=== PATIENT | male | born 1985 | race Caucasian/White ===

== ENCOUNTER 2017-10-17 10:53 | Emergency (ER) | payer SELFPAY ==
[2017-10-17 10:55] VITALS: BP 138/93; PULSE 117; RESP 14; TEMP 36.7; O2SAT 97; BMI 20.7
--- NOTE | 2017-10-17 11:05 | ED.VISSUMM ---
- ER Visit Summary Date of Service: 10/17/17 Chief Complaint: [Dental pain] History of Present Illness: The patient is a 32 M [presents to the emergency department with dental pain since yesterday. Patient states that he was eating one part of his left upper tooth broke off. Patient has an appointment to see a dentist in 4 days. Patient woke up this morning and noticed swelling to the left upper face. Patient denies fevers. Patient states that he has poor dentition to begin with. He is on see a dentist in [place] but does not remember the dentist's name.] Physical Examination: [HEENT-PERRLA, EOMI. Cranial nerves II through XII grossly intact. TMs clear. Mucous membranes moist. No adenopathy. Left upper facial swelling noted. No facial cellulitis. Dentition-patient has multiple broken and carried teeth noted but does have tenderness left upper premolars. There is gingival edema without any fluctuance left upper. No cervical adenopathy. Cardiovascular-regular rate and rhythm without murmur or ectopy Lungs-clear to auscultation, chest wall stable without crepitus or subcu emphysema Abdomen-normoactive bowel sounds, soft, nontender, no rebound or rigidity, no peritoneal signs. Extremities-intact ?4, normal range of motion, normal pulses, atraumatic] Test Results: [None indicated] Emergency Department Course and Treatment: [Patient was started on clindamycin]. At this point I believe patient has an early dental abscess however I do not feel it is amenable to I&D at this time. Treatment Plan: [Patient to keep appointment with dentist. Patient will be started on clindamycin and [place] for pain.] Disposition: [Discharged home in stable condition. Patient to return if worsening pain, fever, facial redness, or condition should worsen in any way.] Impression: [Dental pain Dental abscess-early] This note was generated with [employer] dictation software. It may contain incorrect words, spelling, and punctuation that were not noted in review of the chart prior to signing ED Disposition - Plan for ED Patient: Chief Complaint: Dental Referrals: Care Physician,No Primary [Primary Care Provider] -
--- NOTE | 2017-10-17 11:07 | ED.DEP ---
ED Disposition - Plan for ED Patient: Chief Complaint: Dental Instructions: ED Abscess Dental, ED Tooth Pain Prescriptions: Hydrocodone/Acetaminophen [[place] 5-325 Tablet] 1 - 2 ea PO 4X/DAY PRN PRN 5 Days #20 tab PRN Reason: Pain Clindamycin HCl [Cleocin] 300 mg PO Q6H #40 cap Referrals: Care Physician,No Primary [Primary Care Provider] - Additional Instructions: see your dentist as per your appointment.
[2017-10-17] MEDS: Clindamycin HCl 150 MG Capsule 300 MG PO (11:14)
== END 2017-10-17 11:24 | disposition home or self-care (01) ==
PROVIDERS: Emergency Provider Emergency Medicine
DX: K04.7 Periapical abscess without sinus (principal); Z72.0 Tobacco use
CPT/HCPCS: 99283

== ENCOUNTER 2018-12-09 09:13 | Emergency (ER) | payer OTHER, SELFPAY ==
[2018-12-09 09:14] VITALS: BP 131/95; PULSE 98; RESP 17; TEMP 36.7; O2SAT 95; BMI 22.8
--- NOTE | 2018-12-09 09:27 | ED.VISSUMM ---
- ER Visit Summary Date of Service: 12/09/18 Chief Complaint: Right hand swelling History of Present Illness: The patient is a 33 M who states that yesterday he went to take the gas cap off of his vehicle and there was a nest of an unknown insect in there and stung him multiple times in the right hand. He states that the hand continues to be swollen. He is used Benadryl twice a day. No respiratory or oropharyngeal symptoms. No urticaria. No fevers Physical Examination: Afebrile vital signs stable Lung sounds are clear. Oropharyngeal exam is normal. Dorsum of the right hand is swollen. There is no increased warmth or erythema. No lymphangitic streaking. I do not see any obvious stingers that were left in the wound. No evidence of tenosynovitis. Emergency Department Course and Treatment: Patient was given a shot of Kenalog. He was encouraged to continue using Benadryl as well as topical Benadryl and also add in Pepcid. Return if worsening or concerns Impression: 1. Local reaction to insect sting This note was generated with [employer] dictation software. It may contain incorrect words, spelling, and punctuation that were not noted in review of the chart prior to signing ED Disposition - Plan for ED Patient: Disposition: Home or Assisted Living Instructions: ALLERGIC REACTION, Insect (Local) Additional Instructions: Benadryl 25 mg every 6 hours as needed for swelling and itching. Discontinue if making you somnolent Pepcid 20 mg twice a day as needed for swelling and itching You may continue the topical Benadryl as needed.
[2018-12-09] MEDS: Triamcinolone Acetonide 40 MG/ML Vial IM (09:35)
[2018-12-09 09:42] VITALS: BP 138/77; PULSE 62; RESP 15; O2SAT 98
== END 2018-12-09 09:45 | disposition home or self-care (01) ==
LOC: ED 09:33
PROVIDERS: Emergency Provider Emergency Medicine
DX: T63.481A Toxic effect of venom of other arthropod, accidental (unintentional), initial encounter (principal); M79.89 Other specified soft tissue disorders; Y92.9 Unspecified place or not applicable
CPT/HCPCS: 96372; 99282

== ENCOUNTER 2021-04-23 09:32 | Emergency (ER) | payer SELFPAY ==
[2021-04-23 09:34] VITALS: BP 150/114; PULSE 106; RESP 16; TEMP 36.5; O2SAT 98; BMI 20.5
--- NOTE | 2021-04-23 09:52 | CT_ITS ---
STUDY: CT ABDOMEN AND PELVIS WITH CONTRAST REASON FOR EXAM: Male, 35 years old. Abdominal pain -- IV PO Contrast RADIATION DOSAGE (If Supplied By Facility): CTDIvol = ( 11.67 ) mGy, DLP = ( 680.14 ) mGycm TECHNIQUE: Transaxial images were obtained from the dome of the diaphragm to the symphysis pubis with oral contrast. Oral and amp; IV Gastrografin and amp; 100mL Isovue-300 was administered. Sagittal and coronal images were reconstructed. Individualized dose optimization techniques were used for this CT. COMPARISON: Comparison is made with prior study dated 12/13/2012. FINDINGS: The visualized lung bases are unremarkable. The visualized portions of the heart are within normal limits. Normal liver. The patient is status post cholecystectomy. Normal spleen. Normal pancreas. There is a small, circumscribed, smooth, low attenuation left adrenal mass, consistent with an adrenal adenoma. This measures 1.1 cm. Normal right adrenal gland. Normal right kidney. Stable 1 cm cyst in the upper pole of the right kidney. Normal visualized stomach. Normal small intestine. There is diverticulosis, with thickening of the colon wall, and pericolonic inflammation changes consistent with a mild noncomplicated acute diverticulitis. The patient is status post right hemicolectomy. There is scattered atherosclerotic calcification of the abdominal aorta, without a demonstrated aneurysm. Normal inferior vena cava. There is borderline retroperitoneal lymphadenopathy with enlarged nodes no greater than 10mm in the short axis diameter. There is a mild degree of diffuse bladder wall thickening. Normal abdominal wall. Normal osseous structures. CT/Abdomen/Pelvis WITH Contrast IMPRESSION: Findings in keeping with a mild degree of noncomplicated sigmoid diverticulitis. Bladder wall thickening. 1.1 cm left adrenal adenoma. Electronically Signed: Ruben Hunter MD at 12:40 EST , Service support ,
--- NOTE | 2021-04-23 09:53 | ED.VIS.GI ---
HPI HPI - GI History of Present Illness Chief Complaint: Abd Pain Informant: patient Abdominal Pain/Flank Pain Onset: Days (5) Context: Gradual Onset Timing: Continuous Quality: Sharp (At times) and - (Pressure) Location: RLQ Worsened by: Movement Relieved by: Nothing Nausea/Vomiting/Emesis GI Symptom: Positive for Nausea; Negative for Vomiting Diarrhea/Melena/Hematochezia GI Symptom: Negative for Diarrhea, Melena and Hematochezia Associated Symptoms Associated Symptoms: Negative for Dysuria, Frequency and Hematuria Narrative Narrative: Patient presents with right lower quadrant pain that has been getting worse over the past 5 days. Patient states that his pain started in the right lower quadrant. Patient started out as a dull ache but now is a constant pressure. Patient states the pain is sharp whenever he moves. Patient states nothing seems to make the pain better. Patient admits to some nausea when the pain becomes bad. Patient denies any vomiting. Patient states the skin in his right lower quadrant has some mild erythema. Patient states that there was some drainage from that area a few days ago. Patient states his pain radiates into his right groin. Patient admits to decreased appetite. Patient denies any dysuria or hematuria. [facility] Medical History (Updated 04/23/21 @ 13:[address] Amanuel Leiva DO) Anxiety Home Medications alprazolam 0.5 mg PO BID 10/14/13 [History Last Taken Unknown] amoxicillin-pot clavulanate 875 mg PO Q12H #20 tablet 04/23/21 [Rx Last Taken Unknown] Allergy/AdvReac Type Severity Reaction Status Date / Time No Known Allergies Allergy Verified 04/23/21 09:37 Surgical History History of bowel resection History of cholecystectomy Social History Smoking Status: Current every day smoker tobacco type: cigarettes ROS ROS ED Constitutional Constitutional ED: Denies chills or fever(s) Eyes Eyes: Denies blurry vision or change in vision ENT ENT ED: Denies rhinorrhea or sore throat Cardiovascular Cardiovascular: Denies chest pain or palpitations Respiratory/Chest Respiratory/Chest: Denies cough or dyspnea Gastrointestinal Gastrointestinal: Reports abdominal pain and nausea; Denies diarrhea, melena or vomiting Genitourinary Genitourinary ED: Denies dysuria or hematuria Musculoskeletal Musculoskeletal: Reports back pain; Denies neck pain Integumentary Denies abscess or rash Neurologic Neurologic: Reports headache(s); Denies weakness Allergic/Immunologic Allergic/Immunologic ED: Denies mouth swelling or urticaria EXAM Physical Exam Const Vital Signs: 04/23/21 09:34 Temperature 97.7 F L Temperature Source Temporal Pulse Rate 106 H Respiratory Rate 16 Blood Pressure 150/114 H Blood Pressure Mean 126 Pulse Ox 98 Oxygen Delivery Method Room Air Positive well nourished and well developed General Appearance ED: well developed HEENT Reports moist mucous membranes Neck supple and no JVD Resp normal respiratory effort and clear to auscultation bilaterally Cardio regular rate, regular rhythm and no murmurs GI normal to inspection, nondistended, normoactive bowel sounds and non-distended GI Narrative: There is tenderness in the right inguinal area and right testicle. There is no erythema or warmth. There is no hernia palpated. Palpation: soft and tender RLQ and Rovsing's sign; Negative for guarding or rebound tenderness present Extremity normal to inspection General Extremety ED: Negative for edema or tenderness General Extremity: Negative for edema Neuro oriented x3, CN's II-XII intact bilaterally and no sensory deficits noted Sensorium / Orientation: alert Motor Exam: strength 5/5 throughout Psych mental status grossly normal Skin no rashes or lesions noted MDM MDM MDM Narrative Medical decision making narrative: Patient was given IV fluids, morphine, and Zofran. CBC shows a hemoglobin of 18.5. The remainder was within normal limits. Comprehensive metabolic profile showed a slightly elevated bilirubin of 1.5. Lactate was normal at 1.0. CT scan of the abdomen pelvis was obtained. There is mild diverticulitis. There is bladder wall thickening. There is no free air or evidence of bowel obstruction. This was interpreted by the radiologist and reviewed by myself. Patient was given a dose of Augmentin here. Patient was given a prescription for Augmentin. Patient was instructed to follow-up with his primary care physician in 5 to 7 days. Patient understood and was agreeable with the plan. All questions were answered. Lab Data Attestation: I reviewed the patient's lab results. Labs: Laboratory Results - last 24 hr 04/23/21 04/23/21 04/23/21 10:58 10:58 10:58 WBC 5.7 RBC 5.24 Hgb 18.5 H* Hct 50.9 MCV 97.1 H MCH 35.3 H MCHC 36.3 H RDW Std Deviation 45.0 H RDW Coeff of Toyin 12.7 Plt Count 169 MPV 9.7 Immature Gran % (Auto) 0.200 Neut % (Auto) 71.3 H Lymph % (Auto) 17.0 L [place] % (Auto) 10.2 H Eos % (Auto) 0.9 Baso % (Auto) 0.4 Absolute Neuts (auto) 4.0 Absolute Lymphs (auto) 0.96 Nucleated RBC % 0 Differential Comment COMMENT Diff Path Review May foll Sodium 135 L Potassium 4.2 Chloride 102 Carbon Dioxide 29.0 Anion Gap 4 L BUN 6 L Creatinine 0.76 Estim Creat Clear Calc 115.26 Est GFR (MDRD) Af Amer 148 Est GFR (MDRD) Non-Af 122 BUN/Creatinine Ratio 7.9 L Glucose 90 Lactic Acid 1.0 Calcium 8.6 Total Bilirubin 1.50 H AST 29 ALT 54 Alkaline Phosphatase 115 Total Protein 7.4 Albumin 3.3 Globulin 4.1 Albumin/Globulin Ratio 0.8 L Urine Color Urine Clarity Urine pH Ur Specific [place] Urine Protein Urine Glucose (UA) Urine Ketones Urine Occult Blood Urine Nitrite Urine Bilirubin Urine Urobilinogen Ur Leukocyte Esterase Urine RBC Urine WBC Ur Squamous Epith Cells Urine Bacteria Urine Mucus 04/23/21 11:20 WBC RBC Hgb Hct MCV MCH MCHC RDW Std Deviation RDW Coeff of [place] Plt Count MPV Immature Gran % (Auto) Neut % (Auto) Lymph % (Auto) [place] % (Auto) Eos % (Auto) Baso % (Auto) Absolute Neuts (auto) Absolute Lymphs (auto) Nucleated RBC % Differential Comment Diff Path Review Sodium Potassium Chloride Carbon Dioxide Anion Gap BUN Creatinine Estim Creat Clear Calc Est GFR (MDRD) Af Amer Est GFR (MDRD) Non-Af BUN/Creatinine Ratio Glucose Lactic Acid Calcium Total Bilirubin AST ALT Alkaline Phosphatase Total Protein Albumin Globulin Albumin/Globulin Ratio Urine Color Yellow Urine Clarity Clear Urine pH 6.5 Ur Specific [place] 1.005 Urine Protein Negative Urine Glucose (UA) Normal Urine Ketones Negative Urine Occult Blood Negative Urine Nitrite Negative Urine Bilirubin Negative Urine Urobilinogen Normal Ur Leukocyte Esterase Negative Urine RBC 0 SEEN Urine WBC 0 SEEN Ur Squamous Epith Cells 0 SEEN Urine Bacteria 0 SEEN Urine Mucus 0 SEEN Radiography Diagnostic Testing: Clinical Impression(s) from Imaging Studies Abdomen/Pelvis CT 04/23/21 09:52 IMPRESSION: Findings in keeping with a mild degree of noncomplicated sigmoid diverticulitis. Bladder wall thickening. 1.1 cm left adrenal adenoma. Electronically Signed: Ruben Hunter MD at 12:40 EST , Service support , Discharge Plan Triage Chief Complaint: Abd Pain ED Provider: Amanuel Leiva Dx/Rx/DC Orders Clinical Impression: Diverticulitis, Cellulitis of right abdominal wall Instructions: ED Diverticulitis Prescriptions: New amoxicillin-pot clavulanate [amoxicillin-pot clavulanate] 875 MG tablet 875 mg PO Q12H Qty: 20 RF: 0 No Action alprazolam 0.5 MG tablet 0.5 mg PO BID RF: 0 Primary Care Provider: Care Physician,No Primary Referrals: Nida Madrigal DO [STAFF PHYSICIAN] - 3-5 Days Care Physician,No Primary [Primary Care Provider] - Disposition Disposition: Home, Self Care
[2021-04-23] MEDS: Morphine 4 MG/ML Syringe IV (10:54)
[2021-04-23] MEDS: Ondansetron 4 MG/2 ML Vial IV (10:54)
[2021-04-23] MEDS: 0.9% Normal Saline 1,000 ML 1000 ML IV (10:54)
[2021-04-23 11:32] LABS: ALB/GLOB Ratio 0.8 RATIO (0.9-2.4); AST(SGOT) 29 U/L (15-37); Alanine Aminotransfer ALT/SGPT 54 U/L (16-61); Albumin, Serum 3.3 g/dL (3.2-5.0); Alkaline Phosphatase 115 U/L (45-117); Anion Gap 4 (5-15); BUN 6 mg/dL (7-18); BUN/Creat Ratio 7.9 RATIO (10-20); Calcium,Total 8.6 mg/dL (8.5-10.1); Chloride 102 mmol/L (98-107); Creatinine, Serum 0.76 mg/dL (0.70-1.30); EST Glomerular Filtration Rate 122 mL/min (>60); Est Glom Filt Rate - Afr Amer 148 mL/min (>60); Estimated Creatinine Clearance 115.26 ml/min; Globulin 4.1 g/dL (2.2-4.2); Glucose 90 mg/dL (74-106); Potassium 4.2 mmol/L (3.5-5.1); Protein, Total 7.4 g/dL (6.4-8.2); Sodium Level 135 mmol/L (136-145)
[2021-04-23 11:33] LABS: Bacteria 0 SEEN /hpf (None Seen); Mucous, Urine 0 SEEN /hpf (<or=2+); Red Blood Cells-Urine 0 SEEN /hpf (0-5); Squamous Epithelial Cells - UA 0 SEEN /hpf (0-5); White Blood Cells 0 SEEN /hpf (0-5)
[2021-04-23 11:35] LABS: Color, Urine Yellow (Yellow); Glucose, Dipstick Normal (Normal); Ketone-Dipstick Negative (Negative); Leukocyte Esterase-Dipstick Negative /ul (Negative); Nitrite-Dipstick Negative (Negative); Occult Blood-Urine Negative /ul (Negative); Protein-Dipstick Negative (Negative); Specific Gravity, Urine 1.005 (1.002-1.030); Urine Bilirubin Dipstick Negative (Negative); Urine Clarity Clear (Clear); Urine Urobilinogen Normal (Normal); Urine pH 6.5 (5.0 - 8.0)
[2021-04-23 11:36] LABS: Absolute Lymphocyte Count 0.96 X10^3/uL (0.83-4.51); Basophil# 0.02 X10^3/uL; Basophil% 0.4 % (0-1); Eosinophil# 0.05 X10^3/uL; Eosinophils% 0.9 % (0-5); Hematocrit 50.9 % (40-54); Lymphocyte # 0.96 X10^3/ul (0.83-4.51); Mean Corp Hgb Conc 36.3 g/dL (32-36); Mean Corpuscular Hgb 35.3 pg (27.0-32.0); Mean Corpuscular Volume 97.1 fL (80-94); Mean Platelet Vol. 9.7 fl (6.2-12.0); Monocyte# 0.58 X10^3/uL; Monocyte% 10.2 % (0-10); NRBC Flagged by Analyzer 0 % (0-5); Neutrophil # 4.04 X10^3/uL (2.7-7.7); Neutrophil % 71.3 % (47-70); Platelet Count 169 K/mm3 (150-450); RBC Distribution Width CV 12.7 % (11.6-14.6); Red Blood Count 5.24 M/mm3 (4.6-6.2); White Blood Count 5.7 K/mm3 (4.4-11.0)
--- NOTE | 2021-04-23 11:48 | ED.RN ---
critical result of hemoglobin-18.5 md aware.
[2021-04-23 11:49] LABS: Differential Indicated SCAN CRITERIA MET; Hemoglobin 18.5 g/dL (13.0-16.5)
[2021-04-23 13:56] VITALS: BP 135/103; PULSE 86; RESP 14; O2SAT 99
[2021-04-23] MEDS: Amox/Clavulanate 875 MG Tablet PO (13:56)
[2021-04-24 13:09] LABS: Pathologist Review Reviewed
== END 2021-04-23 14:03 | disposition home or self-care (01) ==
PROVIDERS: Emergency Provider Emergency Medicine
DX: K57.32 Diverticulitis of large intestine without perforation or abscess without bleeding (principal); L03.311 Cellulitis of abdominal wall; F41.9 Anxiety disorder, unspecified; F17.210 Nicotine dependence, cigarettes, uncomplicated; Z79.899 Other long term (current) drug therapy
CPT/HCPCS: 74177; 80053; 81001; 83605; 85025; 96361; 96374; 96375; 99284; J7030; Q9967; A4216; J2405

== ENCOUNTER 2024-04-29 08:08 | Emergency (ER) | payer MEDICAID, SELFPAY ==
[2024-04-29 08:09] VITALS: BP 149/110; PULSE 100; RESP 16; TEMP 36.4; O2SAT 98; BMI 22.3
--- NOTE | 2024-04-29 08:25 | EX.ED.DYSGE1 ---
HPI History of Present Illness Chief Complaint: GI Bleed Detail of Chief Complaint: Bright red blood per rectum with bowel movement this morning Informant: patient Onset/Context/Timing Onset: Today Context: Sudden Onset Timing: Intermittent Quality: Bright red blood Location: With bowel movement Current Severity: Not applicable Maximum Severity: Moderate Worsened by: Patient is concerned this is related to his prior surgery Relieved by: Nothing Associated Symptoms Associated Symptoms: No abdominal pain. Not on anticoagulant Narrative Narrative: Patient is a 38-year-old male. He apparently had gangrene bowel which resulted in lower GI bleed. He presents because of bright red blood per rectum with bowel movement this morning. He states his stool was brown. He states there was a lot of blood. He became nervous and presented to the emergency department. He denies fever, chills night sweats. Denies nausea or vomiting. Patient states she has had chronic diarrhea since surgery. He also is status postcholecystectomy by Dr. Green in 2017 Prior similar symptoms: Yes Recent Illness/Hospitalization: No PFSH PFSH Medical History Anxiety Home Medications ?Medication ?Instructions ?Recorded ?Last Taken ?Type alprazolam 0.5 mg tablet 0.5 mg PO BID 10/14/13 Unknown History amoxicillin 875 mg-potassium 875 mg PO Q12H #20 TABLETS 04/23/21 Unknown Rx clavulanate 125 mg tablet Allergy/AdvReac Type Severity Reaction Status Date / Time No Known Allergies Allergy Verified 04/29/24 08:08 Surgical History History of cholecystectomy History of bowel resection Social History (Updated 04/29/24 @ 08:[address] Faizan Bray MD) Smoking Status: Current every day smoker tobacco type: cigarettes alcohol intake: current alcohol intake frequency: 3 or more drinks per day substance use type: does not use ROS ROS ED Constitutional Constitutional ED: Denies chills, fever(s), subjective or sweats Cardiovascular Cardiovascular: Denies chest pain or palpitations Respiratory/Chest Respiratory/Chest: Denies cough, dyspnea or dyspnea on exertion Gastrointestinal Gastrointestinal: Reports diarrhea and other Details: Hematochezia ; Denies abdominal pain, constipation, melena, nausea or vomiting Neurologic Neurologic: Denies paresthesias or weakness Hematologic/Lymphatic Hematologic/Lymphatic: Reports systems reviewed and no addt'l complaints, except as documented; Denies easy bleeding or easy bruising EXAM Physical Exam Const Vital Signs: 04/29/24 08:09 Temperature 97.6 F L Temperature Source Oral Pulse Rate 100 Respiratory Rate 16 Blood Pressure 149/110 H Blood Pressure Mean 123 Pulse Ox 98 Oxygen Delivery Method Room Air Positive well nourished, well developed and unkempt General Appearance ED: unkempt, well developed and NAD; Negative for pallor HEENT Reports moist mucous membranes HEENT Narrative: Patient has poor dentition. Otherwise HEENT exam is unremarkable. Eyes PERRL and EOMs intact bilaterally General Eye ED: Negative for pale conjunctiva or scleral icterus Chest Wall inspection of chest normal and palpation of chest normal Resp normal respiratory effort and clear to auscultation bilaterally Cardio regular rate, regular rhythm, S1 normal heart sound, S2 normal heart sound and no murmurs GI normal to inspection, nondistended, normoactive bowel sounds, non-tender, non-distended and no masses; Negative for hepatosplenomegaly GI Narrative: Patient has evidence of prior hemorrhoids i.e. sentinel tag. There is no blood noted at the anus. There is no fissures or fistulas noted. Patient had discomfort on rectal exam. Prostate slightly enlarged. Prostate is not tender. Stool is brown. There is no blood noted. Back/Spine no CVA tenderness Neuro oriented x3 and CN's II-XII intact bilaterally Sensorium / Orientation: alert Psych mental status grossly normal Appearance: unkempt Skin no rashes or lesions noted, no wounds and skin turgor normal General Skin Exam: Negative for jaundice or pallor MDM MDM MDM Narrative Medical decision making narrative: In light of patient's history report of bright red blood and no obvious abnormality to explain his bleeding anoscopy was performed. Anoscopy: Patient tolerated procedure. There is a hemorrhoid noted at 5 and 7:00 lithotomy position. Stool above the scope was noted brown. There is no blood noted above the scope. There is no active bleeding at this time. History & Record Review Additional record(s) reviewed:: Prior inpatient record and Prior outpatient record (ER visit for soft tissue infection i.e. cellulitis of the abdomen in 2020 and 2018.) Treatment and Re-Evaluation :: Patient was informed of the findings. Patient was discharged to home. Discharge Plan Triage Chief Complaint: GI Bleed ED Provider: Faizan Bray Dx/Rx/DC Orders Clinical Impression: Bleeding external hemorrhoids, Elevated blood-pressure reading without diagnosis of hypertension Prescriptions: No Action alprazolam 0.5 MG tablet 0.5 mg PO BID Patient Comments: ANXIETY amoxicillin-pot clavulanate [amoxicillin-pot clavulanate] 875 MG tablet 875 mg PO Q12H Qty: 20 0RF Primary Care Provider: Care Physician,Margaret Primary Referrals: Care Physician,No Primary [Primary Care Provider] - Activity Restrictions/Additional Instructions: 1. Since he did not have a doctor you were referred to the [facility]. Print Language: Lao Disposition Disposition: Home, Self Care
[2024-04-29 08:44] VITALS: BP 147/109; PULSE 89; RESP 16; TEMP 36.6; O2SAT 99
== END 2024-04-29 08:49 | disposition home or self-care (01) ==
LOC: ED 08:46
PROVIDERS: Emergency Provider Emergency Medicine; Visit Provider Emergency Medicine
DX: K64.9 Unspecified hemorrhoids (principal); R03.0 Elevated blood-pressure reading, without diagnosis of hypertension; F17.210 Nicotine dependence, cigarettes, uncomplicated
CPT/HCPCS: 99282

== ENCOUNTER 2024-06-11 08:20 | Emergency (ER) | payer MEDICAID, SELFPAY ==
[2024-06-11 08:20] VITALS: BP 146/109; PULSE 100; RESP 18; TEMP 36.6; O2SAT 98; BMI 23.1
--- NOTE | 2024-06-11 08:30 | RAD_ITS ---
STUDY: X-RAY - RIGHT KNEE REASON FOR EXAM: Male, 38 years old. R-knee injury TECHNIQUE: 4 view(s) of the knee. COMPARISON: None. FINDINGS: Normal visualized distal femur. Normal visualized proximal tibia and fibula. Normal proximal tibiofibular articulation. Normal medial femorotibial compartment. Normal lateral femorotibial compartment. Normal patellofemoral articulation. The soft tissue structures are unremarkable. RAD/Knee 4 or More Views IMPRESSION: Normal x-ray examination of the knee. Electronically Signed: Ruben Hunter MD at 8:49 EST ,
--- NOTE | 2024-06-11 08:31 | EDS_ITS ---
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 States that last day he was shoveling snow. Slipped on the ice felt a pop in his knee and went down. No prior knee surgery in his 20s he had a meniscal tear that did not need surgical repair and healed. Said typically does not have knee problems. Today when he goes to bear weight on his right knee he has discomfort. No swelling. No fever or redness. Prior to slipping on the ice he was not having any knee issues or pain. Chief Complaint: Lower Extremity Injury Informant: patient Occured/Mechanism Mechanism/Context: Yes injury Onset/Context/Timing Onset: Today and Yesterday Context: Sudden Onset Timing: Continuous Quality of Pain: Sharp Current Severity: Mild Maximum Severity: Mild Associated Symptoms Associated Symptoms: Negative for Parasthesia, Weakness or Loss of Funtion Narrative Narrative: 38-year-old male slipped on the ice last night heard a pop and has had pain in his right knee worse with weightbearing since then. Denies other complaints. No prior knee surgery. History of a prior meniscal tear. Prior similar symptoms: No Recent Illness/Hospitalization: No PFSH PFS Medical History Anxiety Home Medications ?Medication ?Instructions ?Recorded ?Last Taken ?Type alprazolam 0.5 mg tablet 0.5 mg PO BID 10/14/13 Unknown History amoxicillin 875 mg-potassium 875 mg PO Q12H #20 TABLETS 04/23/21 Unknown Rx clavulanate 125 mg tablet Allergy/AdvReac Type Severity Reaction Status Date / Time No Known Allergies Allergy Verified 06/11/24 08:20 Surgical History History of cholecystectomy History of bowel resection Social History Smoking Status: Current every day smoker tobacco type: cigarettes alcohol intake: current alcohol intake frequency: 3 or more drinks per day substance use type: does not use ROS ROS ED ROS Narrative Denies recent illness. Constitutional Constitutional ED: Denies chills or fever(s) Eyes Eyes: Denies blurry vision ENT ENT ED: Denies ear pain Cardiovascular Cardiovascular: Denies chest pain or palpitations Respiratory/Chest Respiratory/Chest: Denies cough or dyspnea Gastrointestinal Gastrointestinal: Denies abdominal pain Genitourinary Genitourinary ED: Denies dysuria Musculoskeletal Musculoskeletal: Denies arthralgias Integumentary Denies abscess Neurologic Neurologic: Denies headache(s) Psychiatric Psychiatric: Denies anxiety or depression Endocrine Endocrinology: Denies polydipsia or polyphagia Hematologic/Lymphatic Hematologic/Lymphatic: Denies easy bleeding or easy bruising Allergic/Immunologic Allergic/Immunologic ED: Denies mouth swelling, tongue swelling or urticaria EXAM Physical Exam Narrative Exam Narrative: 2-year-old male no acute distress. Vital signs stable afebrile. H EENT exam unremarkable. Moist weeks membranes. Neck nontender. Lungs clear. Heart reg ular rhythm no murmur. Chest wall ribs nontender. Abdomen soft nontender. Moving all 4 extremities. Neurovascularly intact. Normal range of motion. Normal strength. Specifically right hip nontender. Right knee no reproducible pain to palpation. No swelling or effusion. No discoloration. No redness or warmth. No hot joint. He has full flexion and extension of the right knee. When he completely extends 180 degrees he has mild discomfort in the popliteal fossa. He can lift his leg off the bed. The ACL and PCL ligaments are intact with good endpoints. As are the MCL and LCL ligaments. Quadriceps patella and infrapatellar tendon are intact. There is no joint effusion. Calf and lower leg are nontender. No edema or cords. Ankle is nontender. He has normal dorsi and plantarflexion of the right foot and ankle. Normal sensation. Const Vital Signs: 06/11/24 08:20 Temperature 98 F Temperature Source Temporal Pulse Rate 100 Respiratory Rate 18 Blood Pressure 146/109 H Blood Pressure Mean 121 Pulse Ox 98 Oxygen Delivery Method Room Air Positive well nourished and well developed; Negative for obese, cachectic, contractures or unkempt General Appearance ED: well developed and NAD; Negative for unkempt, cachectic or contractures Nutritional Appearance: Negative for cachectic or obese HEENT Reports moist mucous membranes normocephalic and atraumatic Eyes PERRL Neck full ROM and supple Chest Wall inspection of chest normal and palpation of chest normal Resp normal respiratory effort, no retractions and clear to auscultation bilaterally Cardio regular rate, regular rhythm, S1 normal heart sound, S2 normal heart sound and no murmurs Rate: Negative for bradycardia or tachycardic Rhythm: Negative for abnormal rhythm Bruits: Negative for other GI non-tender, non-distended and no masses Inspection: Negative for abdominal distention Auscultation: normoactive bowel sounds Palpation: soft; Negative for tender, guarding or rebound tenderness present Back/Spine no CVA tenderness General Back: Negative for CVA tenderness or swelling Cervical Spine: Negative for cervical spine tenderness Thoracic Spine / Upper Back: Negative for thoracic spinal tenderness Lumbar Spine / Lower Back: Negative for lumbar spinal tenderness, straight leg raise negative bilaterally, straight leg raise positive right or straight leg raise positive - left Extremity normal to inspection and full ROM General Extremety ED: Yes weight-bearing difficulty; Negative for cyanosis or edema General Extremity: weight-bearing difficulty; Negative for cyanosis or edema Neuro oriented x3, CN's II-XII intact bilaterally, moves all extremities and no sensory deficits noted Sensorium / Orientation: alert, oriented to person, oriented to place and oriented to time; Negative for orientation impaired, confused, lethargic or stuporous Motor Exam: strength 5/5 throughout Psych mental status grossly normal Appearance: Negative for unkempt Skin no wounds Lesions: no lesions Rashes: no rashes Trauma: Negative for abrasion MDM MDM MDM Narrative Medical decision making narrative: 38-year-old male slipped on the ice injuring his right knee. Exam benign. No swelling or effusion. Normal range of motion. X-ray being obtained. Patient understands the limitations of plain film which will not diamond picker of meniscal tear or other soft tissue injuries. Repeat exam at 9:01 AM unchanged. Patient I discussed his x-ray. Limitations of the x-ray. Treated with ice, Tylenol Motrin. If not improving follow-up with orthopedics for further evaluation and to rule out a meniscal tear. Radiography Diagnostic Testing: Clinical Impression(s) from Imaging Studies Knee X-Ray 06/11/24 08:30 IMPRESSION: Normal x-ray examination of the knee. Electronically Signed: Ruben Hunter MD at 8:49 EST , Right knee x-ray, 4 views, interpreted both by myself and the radiologist shows no acute abnormality. No fracture. No dislocation. No effusion. Discharge Plan Triage Chief Complaint: Lower Extremity Injury ED Provider: Enrique Dalton Dx/Rx/DC Orders Clinical Impression: Acute knee pain Instructions: ED Knee Sprain Prescriptions: No Action alprazolam 0.5 MG tablet 0.5 mg PO BID Patient Comments: ANXIETY amoxicillin-pot clavulanate [amoxicillin-pot clavulanate] 875 MG tablet 875 mg PO Q12H Qty: 20 0RF Primary Care Provider: Care Physician,No Primary Referrals: Leonel Curry DO [Med Staff - Active Staff] - 1 Week if not improving Care Physician,No Primary [Primary Care Provider] - Activity Restrictions/Additional Instructions: Motrin for pain and inflammation and Tylenol for pain. Ice your knee. Increase activity as tolerated. This may just be a sprain. Obviously the x-rays do not see tendons, ligaments or cartilage. My biggest concern would be potential tear of your meniscus. If not improving call and follow-up with orthopedics to have further evaluation. If the pain does not improve they and you can discuss an MRI of your knee. Print Language: Grenadian Disposition Disposition: Home, Self Care
[2024-06-11 09:10] VITALS: BP 129/73; PULSE 67; RESP 15; TEMP 36.7; O2SAT 100
== END 2024-06-11 09:11 | disposition home or self-care (01) ==
PROVIDERS: Emergency Provider Emergency Medicine; Visit Provider Emergency Medicine
DX: M25.561 Pain in right knee (principal); F17.210 Nicotine dependence, cigarettes, uncomplicated

== ENCOUNTER 2024-07-28 08:44 | Emergency (ER) | payer MEDICAID, SELFPAY ==
[2024-07-28 08:44] VITALS: BP 153/106; PULSE 100; RESP 16; TEMP 36.3; O2SAT 100; BMI 23.1
--- NOTE | 2024-07-28 08:53 | RAD_ITS ---
PROCEDURE: FINGER(S) MIN 2 VIEWS REASON FOR EXAM: Injury. TECHNIQUE: 3 view(s) of the left 3rd finger COMPARISON: None RAD/Finger(s) Min 2 Views IMPRESSION: A displaced Fracture of the distal tuft of the left 3rd finger is seen. No radiopaque foreign body is seen. No intra-articular extension is seen. Reading Location: [id number]
--- NOTE | 2024-07-28 09:17 | EDS_ITS ---
HPI History of Present Illness HPI Narrative: 39-year-old [id number] male yesterday around 4 PM and shot his left hand primarily the tip of the ring finger in his car door. Complaining of pain and swelling. Chief Complaint: Upper Extremity Injury Informant: patient Occured/Mechanism Mechanism/Context: Yes injury and Yes blunt trauma Onset/Context/Timing Onset: Yesterday and Hours Context: Sudden Onset Timing: Continuous Quality of Pain: Sharp Current Severity: Moderate Maximum Severity: Severe Associated Symptoms Associated Symptoms: Negative for Parasthesia, Weakness or Loss of Funtion Narrative Narrative: 39-year-old [id number] male showed his left long finger in his car door yesterday. Complaining of pain and swelling. Prior similar symptoms: No Recent Illness/Hospitalization: No PFSH PFSH Medical History Anxiety Home Medications ?Medication ?Instructions ?Recorded ?Last Taken ?Type alprazolam 0.5 mg tablet 0.5 mg PO BID 10/14/13 Unkno wn History amoxicillin 875 mg-potassium 875 mg (0.875 x 875-125 m g) PO 04/23/21 Unknown Rx clavulanate 125 mg tablet Q12H #20 TABLETS Allergy/AdvReac Type Severity Reaction Status Date / Time No Known Allergies Allergy Verified 07/28/24 08:46 Surgical History History of cholecystectomy History of bowel resection Social History Smoking Status: Current every day smoker tobacco type: cigarettes alcohol intake: current alcohol intake frequency: 3 or more drinks per day substance use type: does not use ROS ROS ED ROS Narrative Denies recent illness. Constitutional Constitutional ED: Denies fever(s) Eyes Eyes: Denies blurry vision ENT ENT ED: Denies ear pain Cardiovascular Cardiovascular: Denies chest pain Respiratory/Chest Respiratory/Chest: Denies cough Gastrointestinal Gastrointestinal: Denies abdominal pain Genitourinary Genitourinary ED: Denies dysuria Musculoskeletal Musculoskeletal: Denies back pain Integumentary Denies abscess Neurologic Neurologic: Denies headache(s) Endocrine Endocrinology: Denies cold intolerance Hematologic/Lymphatic Hematologic/Lymphatic: Denies easy bleeding Allergic/Immunologic Allergic/Immunologic ED: Denies mouth swelling EXAM Physical Exam Narrative Exam Narrative: Moving all 4 extremities. Left long finger has tape around the distal end. When I took the tape off the finger is swollen. Primarily at the tip. Mild bruising. About a 30% subungual hematoma. Nail is intact. Skin is intact. He is able to do flexion and extension. There is tenderness to the distal phalanx. Normal sensation. Skin intact. No infection.Well-appearing a 39-year-old male. Sitting upright in bed. Vital signs are stable afebrile. HEENT exam normal. Moist membranes. Lungs clear. Heart regular rhythm rate about 100 no murmur. Chest wall ribs nontender. Abdomen soft nontender. Neurologically is awake and alert no focal motor deficits. Const Vital Signs: 07/28/24 08:44 Temperature 97.3 F L Temperature Source Temporal Pulse Rate 100 Respiratory Rate 16 Blood Pressure 153/106 H Blood Pressure Mean 121 Pulse Ox 100 Oxygen Delivery Method Room Air Positive well nourished and well developed; Negative for obese, cachectic, contractures or unkempt General Appearance ED: well developed and NAD; Negative for unkempt, cachectic, contractures, cyanotic or diaphoretic Nutritional Appearance: Negative for cachectic or obese HEENT Reports moist mucous membranes normocephalic and atraumatic Eyes PERRL and EOMs intact bilaterally Neck full ROM and supple General: Negative for tenderness Lymph Lymphatic: Negative for other Chest Wall inspection of chest normal and palpation of chest normal Resp normal respiratory effort and clear to auscultation bilaterally Auscultation: Negative for rales, rhonchi or wheezes Cardio regular rate, regular rhythm, S1 normal heart sound, S2 normal heart sound and no murmurs Rate: Negative for bradycardia or tachycardic GI non-tender, non-distended and no masses Auscultation: normoactive bowel sounds Palpation: soft; Negative for tender, guarding or rebound tenderness present Back/Spine no CVA tenderness General Back: Negative for CVA tenderness Cervical Spine: Negative for cervical spine tenderness Thoracic Spine / Upper Back: Negative for thoracic spinal tenderness Lumbar Spine / Lower Back: Negative for lumbar spinal tenderness Extremity Negative for normal to inspection or full ROM Extremity Narrative: Left long finger bruise. Swollen. Tender primarily at the distal phalanx. Ski n intact. Nail intact. 35% subungual hematoma. Exam consistent with fracture. General Extremety ED: Negative for edema General Extremity: Negative for edema Neuro oriented x3, CN's II-XII intact bilaterally, moves all extremities, no focal motor deficits and no sensory deficits noted Sensorium / Orientation: alert, oriented to person, oriented to place and oriented to time Motor Exam: strength 5/5 throughout Psych mental status grossly normal Appearance: Negative for unkempt Skin Skin Narrative: Contusion left long fingertip. Bruising. Rashes: no rashes Trauma: no lacerations or abrasions MDM MDM MDM Narrative Medical decision making narrative: 39-year-old [id number] male showed his left long finger in a car door yesterday. X-rays show fracture of the distal phalanx. He placed in aluminum splint discharged home. Ice and elevate. Tylenol Motrin. Lab Data Labs: X-ray left long finger, 3 views, interpreted by myself and the radiologist shows a fracture of the distal end of the distal phalanx. Soft tissue swelling. Radiography Diagnostic Testing: Clinical Impression(s) from Imaging Studies Finger X-Ray 07/28/24 08:53 IMPRESSION: A displaced Fracture of the distal tuft of the left 3rd finger is seen. No radiopaque foreign body is seen. No intra-articular extension is seen. Reading Location: [address] Discharge Plan Triage Chief Complaint: Upper Extremity Injury ED Provider: Enrique Dalton Dx/Rx/DC Orders Clinical Impression: Finger fracture, left, Subungual hematoma Instructions: ED Fracture, Finger, Closed Prescriptions: No Action alprazolam 0.5 MG tablet 0.5 mg PO BID Patient Comments: ANXIETY amoxicillin-pot clavulanate [amoxicillin-pot clavulanate] 875 MG tablet 875 mg PO Q12H Qty: 20 0RF Primary Care Provider: Care Physician,No Primary Referrals: Care Physician,No Primary [Primary Care Provider] - Activity Restrictions/Additional Instructions: Ice and elevate your finger to decrease pain and swelling. Wear the aluminum splint constantly for the next 48 weeks. The distal phalanx of the left long finger is broken just before the tip. Take the splint off for 5 times daily to do range of motion flexion-extension your finger to keep it from getting stiff in the joints. Motrin and Tylenol for pain. As the swelling and bruising goes down the pain will get better. Off work next 2 days. Print Language: French Disposition Disposition: Home, Self Care
== END 2024-07-28 10:05 | disposition home or self-care (01) ==
LOC: ED 09:27
PROVIDERS: Emergency Provider Emergency Medicine; Visit Provider Emergency Medicine
DX: S62.633A Displaced fracture of distal phalanx of left middle finger, initial encounter for closed fracture (principal); F17.210 Nicotine dependence, cigarettes, uncomplicated; X58.XXXA Exposure to other specified factors, initial encounter
CPT/HCPCS: 73140; 99283